=== PATIENT | female | born 1955 | race African-American/Black ===

== ENCOUNTER 2024-03-08 10:34 | Emergency (ER) | payer MEDICARE ==
[~2024-03-08] VITALS: Ht 160 cm; Wt 63.5 kg
[2024-03-08 10:43] VITALS: TEMP 97.9
[2024-03-08] MEDS: SODIUM CHLORIDE 0.9% 1000ML 1,000 ML IV STA (11:27)
[2024-03-08] MEDS: ONDANSETRON HCL INJ 2MG/ML 2ML 2 MG/ML VIAL IV STA (11:27)
[2024-03-08 11:32] LABS: EOSINOPHILS # (AUTO) 0.1 (0.0-0.4); EOSINOPHILS % 0.9 % (0.0-6.0); HEMATOCRIT 27.7 % (34.2-44.1); HEMOGLOBIN 8.6 g/dL (12.0-16.0); LYMPHOCYTES # (AUTO) 1.5 (1.0-3.2); LYMPHOCYTES % 25.5 % (18.0-39.1); MEAN CORPUSCULAR HEMOGLOBIN 27.9 pg (28-32); MEAN CORPUSCULAR VOLUME 89.9 fL (81-99); MONOCYTES # (AUTO) 0.4 (0.2-0.8); NEUTROPHILS # (AUTO) 3.8 (2.1-6.9); NEUTROPHILS % 66.3 % (38.7-80.0); PLATELET COUNT 348 x10e3/uL (140-360); RED BLOOD COUNT 3.08 x10e6/uL (3.6-5.1); WHITE BLOOD COUNT 5.72 x10e3/uL (4.8-10.8)
[2024-03-08 11:42] LABS: CLARITY,URINE CLEAR (CLEAR); COLOR,URINE YELLOW (YELLOW); LEUKOCYTE ESTERASE ,URINE NEGATIVE (NEGATIVE); NITRITE,URINE NEGATIVE (NEGATIVE); PH,URINE 5.5 (5 - 7)
[2024-03-08 11:43] LABS: BILIRUBIN,URINE NEGATIVE (NEGATIVE); GLUCOSE, URINE NEGATIVE (NEGATIVE); KETONES,URINE NEGATIVE (NEGATIVE); PROTEIN,URINE DIPSTICK NEGATIVE (NEGATIVE); URINE UROBILINOGEN 0.2 mg/dL (0.2 - 1)
[2024-03-08 11:46] LABS: INR 0.96; PROTHROMBIN TIME 13.5 seconds (11.9-14.5)
[2024-03-08 11:47] LABS: PARTIAL THROMBOPLASTIN TIME 25.1 seconds (23.8-35.5)
[2024-03-08 11:58] LABS: ALANINE AMINOTRANSFERASE 17 IU/L (0-55); ALBUMIN 3.7 g/dL (3.5-5.0); ALKALINE PHOSPHATASE 73 IU/L (40-150); ANION GAP 19.9 mmol/L (8-16); BILIRUBIN,TOTAL 0.4 mg/dL (0.2-1.2); BLOOD UREA NITROGEN 49 mg/dL (7-26); BUN/CREATININE RATIO 16 (6-25); CALCIUM 9.1 mg/dL (8.4-10.2); CARBON DIOXIDE 17 mmol/L (22-29); CHLORIDE 109 mmol/L (98-107); CREATINE KINASE 80 IU/L (29-168); CREATININE, SERUM 2.97 mg/dL (0.57-1.11); EST GLOMERULAR FILTRATION RATE 17 ML/MIN (>=60); GLUCOSE 147 mg/dL (74-118); MAGNESIUM 2.8 MG/DL (1.3-2.1); POTASSIUM 4.9 mmol/L (3.5-5.1); SODIUM 141 mmol/L (136-145); TOTAL PROTEIN 7.3 g/dL (6.5-8.1)
[2024-03-08 12:05] LABS: INFLUENZAE A&B ANTIGEN (RAPID) NEGATIVE (NEGATIVE); RESPIRATORY SYNC. VIRUS NEGATIVE (NEGATIVE)
[2024-03-08 12:23] LABS: TROPONIN I < 0.001 ng/mL (0-0.300)
[2024-03-08 13:05] LABS: BACTERIA,URINE FEW /HPF; EPITHELIAL CELLS,URINE MODERATE /LPF; RBC,URINE 0-5 /HPF (0-5)
[2024-03-08 14:30] VITALS: PULSE 65; RESP 16
[2024-03-08] MEDS: SODIUM CHLORIDE 0.9% 500ML 500 ML IV ONE (15:33)
[2024-03-08 16:13] VITALS: BP 115/57; RESP 18; TEMP 98.1; O2SAT 100
== END 2024-03-08 16:02 | disposition other institution (70) ==
LOC: ER 10:44
DX: S02.32XA Fracture of orbital floor, left side, initial encounter for closed fracture (principal); W01.0XXA Fall on same level from slipping, tripping and stumbling without subsequent striking against object, initial encounter; Y93.01 Activity, walking, marching and hiking; Y92.89 Other specified places as the place of occurrence of the external cause; I10 Essential (primary) hypertension; E11.65 Type 2 diabetes mellitus with hyperglycemia; E78.5 Hyperlipidemia, unspecified; N28.9 Disorder of kidney and ureter, unspecified; Z11.52 Encounter for screening for COVID-19; R94.31 Abnormal electrocardiogram [ECG] [EKG]
CPT/HCPCS: 36415; 70450; 70486; 71045; 72125; 73562; 80053; 81001; 82550; 83735; 84484; 85025; 85610; 85730; 87086; 87400; 87420; 93005; 99284; J2405; J7030; J7040; U0002